=== PATIENT | female | born 1945 ===

== ENCOUNTER 2021-06-28 15:17 | Inpatient (IN) | payer MEDICARE, OTHER ==
[~2021-06-28] VITALS: Ht 165.1 cm; Wt 63.5 kg
[2021-06-28] MEDS ORDERED: LACT10SO3 PO (15:47)
[2021-06-28] MEDS ORDERED: DEXT15DR6 EACHEYE (15:47)
[2021-06-28] MEDS ORDERED: ALEN70TA3 PO (15:47)
[2021-06-28] MEDS ORDERED: MELA3TAB41 PO (15:47)
[2021-06-28] MEDS ORDERED: CARB1TAB21 PO (15:47)
[2021-06-28] MEDS ORDERED: PRAV40TA3 PO (15:47)
[2021-06-28] MEDS ORDERED: RIVA10TA PO (15:47)
[2021-06-28] MEDS ORDERED: POLY17PO4 PO (15:47)
[2021-06-28] MEDS ORDERED: OMEP40CA21 PO (15:47)
[2021-06-28] MEDS ORDERED: LORA-259 PO (15:47)
[2021-06-28] MEDS ORDERED: CLOZ100T32 PO (15:47)
[2021-06-28] MEDS ORDERED: METF-440 PO (15:47)
[2021-06-28] MEDS ORDERED: VALP250C3 PO (15:47)
[2021-06-28] MEDS ORDERED: CARB-35 PO (15:47)
[2021-06-28] MEDS ORDERED: MEMA10TA PO (15:47)
[2021-06-28] MEDS ORDERED: QUET50TA PO (16:49)
[2021-06-28] MEDS ORDERED: NUT.237L31 PO (16:49)
--- NOTE | 2021-06-28 18:00 | NUR ---
Reviewed pt medication w/ pt's daughter.
--- NOTE | 2021-06-28 18:05 | NUR ---
Patient is resting comfortably in bed with eyes closed. NAD noted.
--- NOTE | 2021-06-28 18:22 | NUR ---
Pt awake quite and cooperative. No C/O pain.
--- NOTE | 2021-06-28 18:39 | NUR ---
PT is medically cleared by Dr Marcos. Pt to be admitted to MHU.
--- NOTE | 2021-06-28 19:29 | NUR ---
pt a/o report was given for mental health transfer.
[2021-06-28] MEDS ORDERED: OLANZAPINE 10 MG VIAL IM ONE ×2 (22:00)
[2021-06-28] MEDS ORDERED: LORAZEPAM 2 MG/1 ML VIAL IM ONE ×2 (22:00)
--- NOTE | 2021-06-28 22:01 | NUR ---
pt transported via [facility]ney with all belongings to mental health unit.
[2021-06-29] MEDS ORDERED: ACETAMINOPHEN 325 MG TABLET PO PRN (02:00)
[2021-06-29] MEDS ORDERED: MAGNESIUM HYDROXIDE 30 ML LIQUID UDC PO PRN (02:00)
[2021-06-29] MEDS ORDERED: CLONAZEPAM 0.5 MG TABLET PO PRN (02:00)
[2021-06-29] MEDS ORDERED: TEMAZEPAM 7.5 MG CAPSULE PO PRN (02:00)
[2021-06-29] MEDS ORDERED: MAG HYDROX/AL HYDROX/SIMETH 30 ML LIQUID UDC PO PRN (02:00)
[2021-06-29] MEDS ORDERED: BLOOD SUGAR DIAGNOSTIC 1 EACH STRIP VI ONE (02:00)
--- NOTE | 2021-06-29 04:53 | NUR ---
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 Patient has been medication non-compliant as well as refusing to eat. On arrival patient's appearance was observed to be poor, disheveled and unkempt. Patient is apparently farsi speaking only, daughter involved and helped with interpretation. Daughter stated that patient was on clozaril for a specific amount of time and the plan was to taper the medication and gradually change it to seroquel, daughter seems to think the failure to begin the new planned medication regimen is the reason for her mother's decline. Patient was unable to complete admission interview process. Plan for care in place as well as observation Q15 minutes for safety. IM times one ordered by psychiatrist for agitation and belligerent behavior however the IM was not administered, patient became less agitated. Last observed awake in room asleep.
[2021-06-29 07:30] VITALS: BP 176/73
--- NOTE | 2021-06-29 10:40 | NUR ---
SASHA Initial Discharge Note Pt's resident is [address] [place] [address]. Pt currently resides at [address], [address] . Pt's daughter confirmed that she and her brother Buddy want the pt back to the facility upon discharge. SASHA will contact [facility] to confirm pt's return upon discharge. SASHA will continue to work with pt, family and MD to ensure a safe and proper discharge plan.
--- NOTE | 2021-06-29 10:41 | NUR ---
SW Family Contact SW contacted pt's daughter, Josseline who stated her borther Buddy is the pt's DPOA. Maria E stated she and her brother 100% want their mother to return to [facility] upon discharge. Josseline reported that they will both be involved in their mother's treatment and discharge plan throughout her stay at [facility]. Josseline is worried about her mother as she expressed her mother's current behavior and mental status was not like this before. SASHA expressed that she will be in contact with her and her brother Buddy again with further discharge and additional information.
--- NOTE | 2021-06-29 12:14 | NUR ---
Firearms Report: Clinical Rehabilitation Coordinator completed and submitted a [employer] firearms report for 5150 grave disability certifications. A copy of report has been placed in patient chart.
--- NOTE | 2021-06-29 15:54 | NUR ---
GPS: PT AGITATED, ANXIOUS AND SCREAMING INSIDE THE ROOM, STATING " THERE IS A MAN NAME YVON WITH A GUN BEHIND THE DOOR!" PT VERY PARANOID AND DELUSIONAL. RE-ORIENTED PT AND REDIRECTED BUT UNSUCCESSFUL, PT STILL SCREAMING. DR QUESADA, SUPERVISORY GEOGRAPHER ORDERED ZYPREXA 5MG IM ONE TIME, AND BENADRYL 25MG IM ONE TIME FOR AGITATION AND ANXIETY.
[2021-06-29 16:00] VITALS: BP 155/86
[2021-06-29] MEDS ORDERED: OLANZAPINE 10 MG VIAL IM ONE (16:00)
[2021-06-29] MEDS ORDERED: diphenhydrAMINE 50 MG/1 ML VIAL IM ONE (16:00)
--- NOTE | 2021-06-29 16:26 | NUR ---
GPS: ADMINISTERED ZYPREXA IM TO RIGHT UPPER OUTER QUADRANT OF BUTTOCKS AND BENADRYL IM ON LEFT UPPER OUTER QUADRANT OF BUTTOCKS. PT TOLERATED WELL THE IM INJ. PT WITH TREMORS NOTED ON BOTH HANDS AND SOUNDS NERVOUS, SAYING ABOUT A PERSON, A PRINCIPAL CLOUD ARCHITECT AND ABOUT YVON. PT IN PARANOID STATE OF MIND. WILL MONITOR PT.
[2021-06-29 20:00] VITALS: BP 158/70
[2021-06-29] MEDS: QUETIAPINE FUMARATE 25 MG TABLET PO SCH (21:00)
[2021-06-29] MEDS: DIVALPROEX 250 MG TABLET.DR PO SCH (21:00)
--- NOTE | 2021-06-30 05:31 | NUR ---
Pt awake on her bed at this time, no s/s of distress, no c/o pain. Observed to be uncooperative with care, non compliant with meds. refused HS meds despite trying to offer them multiple times and in different forms. Pt yelled, kept sending nurse out of the room, thinks that she's being poisoned everytime something is offered to her or care is being provided. Daughter Amina called, spoke to this nurse who explained how the patient is doing per her inquiry. Advised to call before coming to visit her mother today, as she stated she was planning to do. Safety precautions in place, q15 min checks done.
[2021-06-30 07:30] VITALS: BP 124/90
[2021-06-30] MEDS: QUETIAPINE FUMARATE 25 MG TABLET PO SCH ×2 (09:00→21:00)
[2021-06-30] MEDS ORDERED: QUETIAPINE FUMARATE 25 MG TABLET PO SCH (09:00)
[2021-06-30] MEDS: DIVALPROEX 250 MG TABLET.DR PO SCH ×2 (09:00→21:00)
--- NOTE | 2021-06-30 10:21 | NUR ---
GPS: PT RECEIVED ON BED, PARANOID AND SUSPICIOUS. REFUSED ALL MEDS, STATING " YOU ARE GIVING ME POISON, I DON'T TAKE THAT!" INFORMED PT THAT I SPOKE WITH HER DAUGHTER AND SHE IS COMING AROUND LUNCH TIME. PT HAVING DELUSIONS, "I KNOW POLICE ARE OUT THERE AND HAVE RIFLE TO HIT ME". PT RE-ORIENTED TO REALITY.
[2021-06-30] MEDS ORDERED: POLYVINYL ALCOHOL OPHT DROPS 15 ML BOTTLE EACHEYE PRN (15:30)
--- NOTE | 2021-06-30 15:58 | NUR ---
GPS: HELPED RETORT FIREMAN CHANGED PT DIAPER AND PT WAS COMBATIVE AND TRYING TO KICK RETORT FIREMAN. STEVE, DAUGHTER OF PT CAME FOR A VISIT AND REQUESTED TO HELP WITH PT TAKING THE MEDICATION. ALL MEANS WAS DONE AND PT REFUSED TAKING MEDICATIONS, EVEN THE GLUCERNA AND BANANA THAT DAUGHTER BROUGHT. PT WAS PARANOID AND SUSPICIOUS. DAUGHTER REQUESTING DR HUERTA/ SANGITA TO CALL HER AT OR ANGLE (DPOA) AT ABOUT REISE PETITION FILED. PER DAUGHTER STEVE, PETITION WAS FILED SO SOON AND WITHOUT DPOA APPROVAL OR AWARENESS. PT REFUSED MEALS, NOTED DRINKING WATER. PER ORNADEEM, PT TAKES FOSAMAX EVERY SATURDAY. AND MAKE LACTULOSE ON PRN PT DOES NOT HAVE GOOD INTAKE.
[2021-06-30] MEDS: MIRALAX 17 GM POWD.PACK PO SCH (17:00)
[2021-06-30] MEDS ORDERED: CARBIDOPA/LEVODOPA 25-100MG TAB.RAPDIS PO SCH (17:00)
[2021-06-30] MEDS: GLUCERNA SHAKE 237 ML CAN PO SCH (17:00)
[2021-06-30] MEDS: CARBIDOPA/LEVODOPA 25-100MG TABLET PO SCH (17:00)
[2021-06-30] MEDS ORDERED: METFORMIN HCL 500 MG TABLET PO SCH (18:00)
[2021-06-30] MEDS ORDERED: RIVAROXABAN 10 MG TABLET PO SCH (18:00)
[2021-06-30] MEDS: ATORVASTATIN 40 MG TABLET PO SCH (21:00)
[2021-06-30] MEDS ORDERED: LACTULOSE 20 G/30 ML LIQUID UDC PO PRN (21:00)
[2021-06-30] MEDS ORDERED: CARBIDOPA/LEVODOPA 25-100MG TABLET PO SCH (21:00)
[2021-06-30] MEDS: CARBIDOPA/LEVODOPA CR 25-100MG TABLET.SA PO SCH (21:00)
--- NOTE | 2021-06-30 21:00 | NUR ---
RECEIVED PATIENT IN HER ROOM IN BED. SHE IS NOTED CONFUSED, DISORGANIZED SPEECH, TALKING IN HER LANGUAGE THEN SWITCHING TO [place]ENLAND[place], BACK AND FORT, FLIGHT OF IDEAS. APPEARS TO BE RESPONDING TO INTERNAL STIMULI, STARING AT THE WALL, TALKING TO UNSEEN PEOPLE, SUSPICIOUS, DELUSIONAL AND PARANOID. SHE IS HARD TO REDIRECT, REQUIRED MULTIPLE REDIRECTIONS. SHE REFUSED V/S, REFUSED SNACKS BUT WAS ABLE TO DRINK APPROX 300CC WATER. SHE CONTINUE REFUSING PO MEDS. SAFETY AND FALL PRECAUTION IN PLACE. WILL CONTINUE TO MONITOR.
--- NOTE | 2021-06-30 22:10 | NUR ---
PATIENT REFUSED QHS PO MEDICATION, MULTIPLE REDIRECTION GIVEN. SHE CONTINUE GROSSLY PSYCHOTIC. SHE IS NOTED COMBATIVE AND RESISTANT TO CARE WHEN PROVIDING ADLs AND SKIN CARE. SHE REQUIRED 2 OR 3 STAFF FOR ADLs. WILL CONTINUE TO MONITOR.
[2021-06-30] MEDS ORDERED: DEXTROSE 50% 50 ML DISP.SYRIN IV PRN (22:45)
[2021-06-30] MEDS ORDERED: INSULIN REGULAR, HUMAN 300 UNIT/3 ML VIAL SQ PRN (22:45)
[2021-07-01] MEDS ORDERED: OLANZAPINE 10 MG VIAL IM ONE (02:45)
[2021-07-01] MEDS ORDERED: diphenhydrAMINE 50 MG/1 ML VIAL IM ONE (02:45)
--- NOTE | 2021-07-01 03:05 | NUR ---
CHEMICAL RESTRAIN: PATIENT WAS NOTED YELLING AND SCREAMING. SHE WAS NOTED TALKING TO HERSELF IN HER LANGUAGE, TALKING TO UNSEEN PEOPLE, STARING AT THE WALL, RESPONDING TO INTERNAL STIMULI, GROSSLY PSYCHOTIC. SHE WAS UNABLE TO CALM DOWN. JOSE ALANIS NP WAS NOTIFIED VIA PHONE CALL AND NEW ORDER OBTAINED TO ADMINISTER ZYPREXA 5MG IM AND BENADRYL 50MG IM ONE TIME ORDER. ORDER NOTED AND CARRIED OUT.
--- NOTE | 2021-07-01 04:15 | NUR ---
PATIENT CONTINUE TALKING TO HERSELF; HOWEVER, SHE IS CALM AND RESTING IN HER BED. CHEMICAL RESTRAIN WAS EFFECTIVE. WILL CONTINUE TO MONITOR.
[2021-07-01] MEDS: PANTOPRAZOLE SODIUM 40 MG TABLET.DR PO SCH ×2 (06:43→06:54)
[2021-07-01] MEDS: BLOOD SUGAR DIAGNOSTIC 1 EACH STRIP VI SCH ×4 (06:54→21:00)
[2021-07-01 07:30] VITALS: BP 165/112
[2021-07-01] MEDS: GLUCERNA SHAKE 237 ML CAN PO SCH ×3 (08:00→17:00)
[2021-07-01] MEDS: DIVALPROEX 250 MG TABLET.DR PO SCH ×2 (08:56→21:00)
[2021-07-01] MEDS: MIRALAX 17 GM POWD.PACK PO SCH ×2 (08:56→17:00)
[2021-07-01] MEDS: CARBIDOPA/LEVODOPA 25-100MG TABLET PO SCH ×3 (08:56→17:00)
[2021-07-01] MEDS: QUETIAPINE FUMARATE 25 MG TABLET PO SCH ×2 (08:56→21:00)
[2021-07-01] MEDS ORDERED: HALOPERIDOL LACTATE 5 MG/1 ML VIAL IM PRN (10:30)
[2021-07-01] MEDS ORDERED: LORAZEPAM 2 MG/1 ML VIAL IM ONE (10:30)
--- NOTE | 2021-07-01 10:30 | NUR ---
Gps/Psychological Aide- Restless, yelling , calling out, screaming out loud, difficulty redirecting patient, disruptive , refusing fluids thinks its poison, ref. routine meds, suspicious of everything offered to her. Dr Hammer was called by Hollow Core Door Frame Assembler Brigette, orders received.
--- NOTE | 2021-07-01 11:35 | NUR ---
Gps/Side Seam Envelope Machine Operator- Remains in bed, no distress, calmer.Monitored safety
[2021-07-01 16:00] VITALS: BP 170/90
[2021-07-01 16:51] LABS: HEMATOCRIT 47.4 % (31.2-41.9); MEAN CORPUSCULAR HEMOGLOBIN 30.2 uug (24.7-32.8); MEAN CORPUSCULAR VOLUME 92.5 fL (75.5-95.3); PLATELET COUNT (AUTO) 172 K/uL (179-408)
[2021-07-01 17:00] LABS: CREATININE 0.8 mg/dL (0.6-1.3); MAGNESIUM 2.3 mg/dL (1.8-2.4); PHOSPHOROUS 3.5 mg/dL (2.5-4.9); POTASSIUM 3.8 mmol/L (3.5-5.1)
[2021-07-01 17:15] LABS: BILIRUBIN,DIRECT 0.1 mg/dL (0.0-0.2); BILIRUBIN,TOTAL 0.7 mg/dL (0.2-1.0); TOTAL PROTEIN, SERUM 7.8 g/dL (6.4-8.2)
--- NOTE | 2021-07-01 17:41 | NUR ---
Gps/Supervisor Home Energy Consultant- Had been quiet this pm, sleeping .Lab. was able to draw blood works , with some assist. from the staff/
--- NOTE | 2021-07-01 18:43 | NUR ---
Gps/Augustine Manjarrez (Daughter) who claimed , she's a Nurse Practitioner , was to know the progress of the patient, reviewed labs as requested, claimed she was here yesterday to vist patient, noted lips were dry, and looks dehydrated. Informed patient's earlier behavior, screaming , yelling out loud, difficulty redirecting patient, extreme paranoia, thinks staff are putting poison in her foods. Per Daughter, she was able to talked to Dr Booth (VIDEO CAMERA OPERATOR) prior Offered fluids, tried to open infront of her , still refused to take anything. vaseline applied to her lips r/t to dryness.
[2021-07-01] MEDS ORDERED: ENOXAPARIN SODIUM 40 MG/0.4 ML DISP.SYRIN SQ ONE (21:00)
[2021-07-01] MEDS: ATORVASTATIN 40 MG TABLET PO SCH (21:00)
[2021-07-01] MEDS: CARBIDOPA/LEVODOPA CR 25-100MG TABLET.SA PO SCH (21:00)
--- NOTE | 2021-07-01 21:39 | NUR ---
RECEIVED PATIENT IN HER ROOM IN BED ASLEEP BUT EASILY AROUSABLE. SHE IS NOTED CALM UPON APPROACHED. SHE IS HARD TO REDIRECT AND REQUIRES MULTIPLE REDIRECTIONS AND REASSURANCE. SHE CONTINUE SUSPICIOUS OF FOOD AND DRINKS THAT ARE FROM THE HOSPITAL. SHE WAS ABLE TO DRINK ONE BOTTLE OF GLUCERNA 250ML AND CHEESE THAT HER DAUGHTER BROUGHT FORM HOME. PT IS ENCOURAGE TO DRINK AND EAT MORE. PATIENT CONTINUE REFUSING PO MEDS. SHE IS GUARDED AND DELUSIONAL. MOOD IS LOW, AFFECT IS IRRITABLE. SHE REFUSED V/S, SHE IS UNCOMPLYING WITH ADLs. SHE IS REASSURED FOR HER SAFETY. SAFETY AND FALL PRECAUTION IN PLACE. WILL CONTINUE TO MONITOR.
--- NOTE | 2021-07-01 22:05 | NUR ---
PATIENT REFUSED ALL HER QHS MEDICATIONS. SHE WAS INFORMED OF THE IMPORTANCE TO COMPLY WITH HER MEDICATION REGIMENT YET INEFFECTIVE. WILL CONTINUE TO MONITOR.
[2021-07-02] MEDS ORDERED: LORAZEPAM 2 MG/1 ML VIAL IM ONE (04:45)
[2021-07-02] MEDS ORDERED: HALOPERIDOL LACTATE 5 MG/1 ML VIAL IM ONE (04:45)
--- NOTE | 2021-07-02 05:30 | NUR ---
PATIENT WAS NOTED YELLING AND SCREAMING, ANXIOUS AND AGITATED, SHE WAS SCREAMING, "DON'T KILL ME, DON'T KILL". SHE ATTEMPTED TO THROUGH AT STAFF A BOTTLE OF GLUCERNA. SHE WAS UNABLE TO TO BE REDIRECTED SHE WAS UNABLE TO CFS. DR GARCIA WAS NOTIFIED AND NEW ORDER OBTAINED TO ADMINISTER HALDOL 2MG IM AND ATIVAN 1MG IM ONE TIME ORDER. ORDER WAS NOTED AND CARRIED OUT. WILL CONTINUE TO MONITOR.
[2021-07-02] MEDS: PANTOPRAZOLE SODIUM 40 MG TABLET.DR PO SCH (06:23)
--- NOTE | 2021-07-02 06:30 | NUR ---
PATIENT NOTED CALM AT THIS TIME. CHEMICAL RESTRAIN WAS EFFECTIVE. WILL CONTINUE TO MONITOR.
[2021-07-02] MEDS: BLOOD SUGAR DIAGNOSTIC 1 EACH STRIP VI SCH ×4 (07:30→21:59)
[2021-07-02] MEDS: GLUCERNA SHAKE 237 ML CAN PO SCH ×3 (08:00→16:28)
[2021-07-02] MEDS: QUETIAPINE FUMARATE 25 MG TABLET PO SCH ×2 (08:36→21:00)
[2021-07-02] MEDS: DIVALPROEX 250 MG TABLET.DR PO SCH ×2 (08:36→21:00)
[2021-07-02] MEDS: MIRALAX 17 GM POWD.PACK PO SCH ×2 (08:36→16:29)
[2021-07-02] MEDS: CARBIDOPA/LEVODOPA 25-100MG TABLET PO SCH ×3 (08:37→16:29)
--- NOTE | 2021-07-02 08:40 | NUR ---
Patient refused her blood to be drawn by phlebotomy.
--- NOTE | 2021-07-02 15:51 | NUR ---
Patient is received sleeping in her room. A/O X 1 to person. Pt. affect is confused, combative, anxious, paranoid " This food is poisonous". Refuses medications, accuchecks, vital signs. Incontinent. Total care. reassurance given. Fall and safety precautions implemented.
[2021-07-02] MEDS ORDERED: IV NS 1000 ML 1,000 ML IV ONE (19:45)
--- NOTE | 2021-07-02 20:45 | NUR ---
Received patient in bed. SHE IS NOTED AWAKE, A/O X 1. UPON APPROACHED, PATIENT IS HYPERVERBAL, WITH PARANOID DELUSION OF PERSECUTION. PATIENT STATED, "INFECTION, NO INFECTION, DON'T GIVE ANY THING IS POISON AND INFECTION". PATIENT REFUSED TO BE REPOSITION, SHE GETS AGITATED AND COMBATIVE WHEN ATTEMPTING TO DO ADLS. SHE REFUSED V/S. REFUSING PO MEDS. NS IV FLUID WAS ORDERED BY DR ANDRADE; HOWEVER, PATIENT IS TOO PSYCHOTIC TO LET THIS TREATING PLANT OPERATOR INSERT AN IV. AND PER NURSE RIGGING UP MAN, NO AVAILABLE SITTER AT THIS TIME TO SIT WITH PATIENT WHILE IV FLUID IS RUNNING. PER NURSE RIGGING UP MAN, SHE WILL TRY TO GET A SITTER FOR THE MORNING. DR ANDRADE WAS NOTIFIED. WILL CONTINUE TO MONITOR AND IF THERE IS AN OPPORTUNITY TO START IV FLUID WILL DO IT.
[2021-07-02] MEDS: CARBIDOPA/LEVODOPA CR 25-100MG TABLET.SA PO SCH (21:00)
[2021-07-02] MEDS ORDERED: ENOXAPARIN SODIUM 40 MG/0.4 ML DISP.SYRIN SQ SCH (21:00)
[2021-07-02] MEDS: ATORVASTATIN 40 MG TABLET PO SCH (21:00)
--- NOTE | 2021-07-02 22:00 | NUR ---
patient accucheck BG qhs is 161. No regular insulin sliding scale was given d/t patient is not eating and she is drinking poorly and per Dr. Boykin, to not given any glucose lowering medication until patient starts eating. She continue refusing to eat, refusing IV fluids and PO medications. she is non compliant with care and ADLs. She was able to take few sips of glucerna. Will continue to monitor.
[2021-07-03] MEDS: PANTOPRAZOLE SODIUM 40 MG TABLET.DR PO SCH (07:00)
[2021-07-03] MEDS: BLOOD SUGAR DIAGNOSTIC 1 EACH STRIP VI SCH ×3 (07:34→16:30)
--- NOTE | 2021-07-03 07:36 | NUR ---
Patient slept for approx 3 hrs through the night, she had 2 wet diapers. His accucheck is 160 this morning. patient continue psychotic, delusional thinking of persecutions. unable to comply with care. she continue stating that people are out to kill her and the all the food and water is poison and infectious. She is unable to be redirected. Per nurse mold construction supervisor, no available sitter at this time; however, patient is too psychotic to start IV. will continue to monitor.
[2021-07-03] MEDS: GLUCERNA SHAKE 237 ML CAN PO SCH ×3 (08:00→16:58)
[2021-07-03 08:29] LABS: HEMATOCRIT 48.9 % (31.2-41.9); MEAN CORPUSCULAR HEMOGLOBIN 30.1 uug (24.7-32.8); MEAN CORPUSCULAR VOLUME 92.2 fL (75.5-95.3); PLATELET COUNT (AUTO) 164 K/uL (179-408)
[2021-07-03] MEDS: QUETIAPINE FUMARATE 25 MG TABLET PO SCH (08:35)
[2021-07-03] MEDS: DIVALPROEX 250 MG TABLET.DR PO SCH (08:35)
[2021-07-03] MEDS: MIRALAX 17 GM POWD.PACK PO SCH ×2 (08:35→16:58)
[2021-07-03] MEDS: CARBIDOPA/LEVODOPA 25-100MG TABLET PO SCH ×3 (08:36→16:59)
[2021-07-03 08:37] LABS: CREATININE 0.9 mg/dL (0.6-1.3); POTASSIUM 3.7 mmol/L (3.5-5.1)
[2021-07-03 08:40] VITALS: BP 155/92
--- NOTE | 2021-07-03 11:53 | NUR ---
Received orders to discharge this patient, talked to Ellie ASHTON from Medical Surgical floor, and she told me they don't have beds available at this moment, waiting for their call regards to this matter.
--- NOTE | 2021-07-03 12:13 | NUR ---
Patient had a fever of 101.3. Dr. Shala Boykin is aware of it. Tylenol 650 mg was refused by the patient.
--- NOTE | 2021-07-03 15:57 | NUR ---
Received patient sleeping in her room. A/O X 1 to person. Pt. affect is confused, disoriented, combative to care. Refuses medications. Total care. Patient is lethargic, not eating well, just waiting for a bed to be discharged to the medical floor, as diagnose of failure to thrive. Reassurance given. Fall and safety precautions implemented.
[2021-07-03] MEDS ORDERED: OLANZAPINE 10 MG VIAL IM ONE (19:30)
[2021-07-03] MEDS ORDERED: diphenhydrAMINE 50 MG/1 ML VIAL IM ONE (19:30)
--- NOTE | 2021-07-03 19:40 | NUR ---
Zyprexa IM given to pt. Pt in no acute distress. Discharge papers given . elevating grader operator with pt and going to room 304. Report given to Tiesha ASHTON. Naomi IM cancelled by Pratima Barnard NP. Pt stable.
[2021-07-03 20:04] LABS: NEUTROPHILS % (MANUAL) 0 % (42-75)
[2021-07-03] MEDS ORDERED: CARB1TAB21 PO ×2 (22:58)
[2021-07-03] MEDS ORDERED: LACTULOSE PO (22:58)
[2021-07-03] MEDS ORDERED: POLY17PO4 PO (22:58)
[2021-07-03] MEDS ORDERED: PANT40TA2 PO (22:58)
[2021-07-03] MEDS ORDERED: MAG30ORA14 PO (22:58)
[2021-07-03] MEDS ORDERED: ALEN70TA80 PO (22:58)
[2021-07-03] MEDS ORDERED: ATOR40TA PO (22:58)
[2021-07-03] MEDS ORDERED: INSU100V28 (22:58)
[2021-07-03] MEDS ORDERED: NUT.237L36 PO (22:58)
[2021-07-03] MEDS ORDERED: BLOO-668 IN (22:58)
[2021-07-03] MEDS ORDERED: DEXT50DI8 IV (22:58)
[2021-07-03] MEDS ORDERED: QUET25TA PO ×2 (22:58)
[2021-07-03] MEDS ORDERED: ENOX40DI SQ (22:58)
[2021-07-03] MEDS ORDERED: [UNRECOGNIZED DRUG - OTHER] PO (22:58)
[2021-07-03] MEDS ORDERED: CLON0.5T PO (22:58)
[2021-07-03] MEDS ORDERED: DIVA250T4 PO (22:58)
[2021-07-03] MEDS ORDERED: DEXT15DR6 EACHEYE (22:58)
[2021-07-03] MEDS ORDERED: ACET-2154 PO (22:58)
--- NOTE | 2021-07-04 15:59 | NUR ---
SW Transfer: Pt was discharged to [facility] [address] floor[address]. De Luna and Pratima FEED MIXER are aware of the discharge. Upon discharge, pt's DPOA Buddy Holt ([phone]) would like to be contacted prior to discharge planning to [facility]
[2021-07-05] MEDS ORDERED: ALENDRONATE SODIUM 70 MG TABLET PO SCH (06:00)
== END 2021-07-03 19:50 | disposition short-term general hospital (02) | DRG 885 ==
LOC: ER 15:23 → GPS 22:55
PROVIDERS: ADMIT Psychiatry & Neurology Psychiatry; ATTEND Nurse Practitioner Acute Care
DX: F31.64 Bipolar disorder, current episode mixed, severe, with psychotic features (principal); G20 Parkinson's disease; F02.80 Dementia in other diseases classified elsewhere, unspecified severity, without behavioral disturbance, psychotic disturbance, mood disturbance, and anxiety; E86.0 Dehydration; E78.5 Hyperlipidemia, unspecified; E11.9 Type 2 diabetes mellitus without complications; R50.9 Fever, unspecified; Z86.711 Personal history of pulmonary embolism; Z91.14 Patient's other noncompliance with medication regimen; M81.0 Age-related osteoporosis without current pathological fracture; Z20.822 Contact with and (suspected) exposure to COVID-19
CPT/HCPCS: 36415; 70030-TC; 83735; 84100; 85025; 93005; A4663; J1200; J1630; J1650; J1815; J2060; J2358; J3490; J7030; J8499

== ENCOUNTER 2021-07-03 20:23 | Inpatient (IN) | payer MEDICARE, OTHER ==
[~2021-07-03] VITALS: Ht 165.1 cm; Wt 63.5 kg
[2021-07-03 20:00] VITALS: BP 145/88
[~2021-07-03 20:23] MED LIST: ALEN70TA3 PO; CARB-35 PO; CARB1TAB21 PO; DEXT15DR6 EACHEYE; LACT10SO3 PO; METF-440 PO; NUT.237L31 PO; OMEP40CA21 PO; POLY17PO4 PO; PRAV40TA3 PO; RIVA10TA PO
--- NOTE | 2021-07-03 20:30 | NUR ---
RECEIVED PATIENT VIA TOAN-CHAIR FROM [facility] AND ADMITTED TO MED SURG. PATIENT IS ALERT TO SELF ONLY, VERY CONFUSED AND DISORIENTED. PATIENT APPEARS VERY PARANOID. VS WNL. DENIES PAIN. NO RESP. DISTRESS OR SOB NOTED. PATIENT PLACED IN BED. SKIN INTACT. BED ALARM ON. ALL NEEDS ATTENDED. WILL CONTINUE TO MONITOR AND ASSESS.
[2021-07-03] MEDS ORDERED: ACET-2154 PO (22:58)
[2021-07-03] MEDS ORDERED: LACTULOSE PO (22:58)
[2021-07-03] MEDS ORDERED: DIVA250T4 PO (22:58)
[2021-07-03] MEDS ORDERED: DEXT50DI8 IV (22:58)
[2021-07-03] MEDS ORDERED: BLOO-668 IN (22:58)
[2021-07-03] MEDS ORDERED: CARB1TAB21 PO ×2 (22:58)
[2021-07-03] MEDS ORDERED: INSU100V28 (22:58)
[2021-07-03] MEDS ORDERED: ATOR40TA PO (22:58)
[2021-07-03] MEDS ORDERED: ALEN70TA80 PO (22:58)
[2021-07-03] MEDS ORDERED: ENOX40DI SQ (22:58)
[2021-07-03] MEDS ORDERED: NUT.237L36 PO (22:58)
[2021-07-03] MEDS ORDERED: DEXT15DR6 EACHEYE (22:58)
[2021-07-03] MEDS ORDERED: [UNRECOGNIZED DRUG - OTHER] PO (22:58)
[2021-07-03] MEDS ORDERED: QUET25TA PO ×2 (22:58)
[2021-07-03] MEDS ORDERED: CLON0.5T PO (22:58)
[2021-07-03] MEDS ORDERED: POLY17PO4 PO (22:58)
[2021-07-03] MEDS ORDERED: PANT40TA2 PO (22:58)
[2021-07-03] MEDS ORDERED: MAG30ORA14 PO (22:58)
[2021-07-04] MEDS ORDERED: ACETAMINOPHEN 325 MG TABLET PO PRN (01:45)
[2021-07-04] MEDS ORDERED: ONDANSETRON 4 MG/2 ML VIAL IV PRN (01:45)
[2021-07-04] MEDS ORDERED: MAGNESIUM HYDROXIDE 30 ML LIQUID UDC PO PRN (01:45)
[2021-07-04] MEDS: LORAZEPAM 2 MG/1 ML VIAL IV PRN ×2 (04:54→15:05)
--- NOTE | 2021-07-04 04:55 | NUR ---
PATIENT VERY AGITATED, UNABLE TO CHANGE DIAPER OR GIVE AM CARE. PATIENT GIVEN ATIVAN 0.5MG IV PER RN. TEMPERATURE 99.8. PATIENT GIVEN TYLENOL 650MG RC FOR TEMP. WILL CONTINUE TO MONITOR AND ASSESS.
[2021-07-04] MEDS: ACETAMINOPHEN 650 MG SUPP.RECT RC PRN (05:10)
--- NOTE | 2021-07-04 05:22 | NUR ---
PATIENT ASLEEP IN BED. EASILY AROUSABLE. MOUTH CARE PROVIDED. NO RESP. DISTRESS NOTED. SITTER AT BEDSIDE ORDERED. BED ALARM ON. ALL NEEDS ATTENDED.
[2021-07-04] MEDS ORDERED: POTASSIUM CHLORIDE 20 MEQ in IV D5 1/2 NS 1000 ML 1,000 ML IV PRN (07:00)
[2021-07-04] MEDS: PANTOPRAZOLE SODIUM 40 MG TABLET.DR PO SCH (07:00)
[2021-07-04 08:00] VITALS: BP 134/70
[2021-07-04] MEDS: METFORMIN HCL 500 MG TABLET PO SCH ×2 (08:00→17:05)
[2021-07-04 08:16] LABS: MEAN CORPUSCULAR HEMOGLOBIN 29.8 uug (24.7-32.8); MEAN CORPUSCULAR VOLUME 91.8 fL (75.5-95.3); PLATELET COUNT (AUTO) 127 K/uL (179-408)
[2021-07-04 08:37] LABS: THYROID STIMULATING HORMONE 1.916 mIU/mL (0.358-3.740)
[2021-07-04] MEDS: MIRALAX 17 GM POWD.PACK PO SCH ×2 (08:52→16:27)
[2021-07-04] MEDS: DIVALPROEX 250 MG TABLET.DR PO SCH ×2 (08:52→21:00)
[2021-07-04] MEDS: METOPROLOL TARTRATE 25 MG TABLET PO SCH ×2 (08:52→21:00)
[2021-07-04] MEDS: CARBIDOPA/LEVODOPA 25-100MG TABLET PO SCH ×3 (08:53→16:28)
[2021-07-04] MEDS: GLUCERNA SHAKE 237 ML CAN PO SCH ×3 (08:54→16:27)
--- NOTE | 2021-07-04 08:54 | NUR ---
RECEIVED PATIENT IN BED AWAKE ALERT TO SELF WITH CONFUSION AND DISORIENTATION REFUSED ALL HER MEDICATIONS STATED THAT THEY ARE TOXIC BUT DRANK HER GLUCERNA BUT REFUSED HER BREAKFAST STATED THAT ALL THE FOOD IS TOXIC AND WILL NOT EAT THEM.HAD A HARD TIME PUTTING HER IV FLUID ORDERED STATED THAT ITS TOXIC AND DOES NOT WANT THE IVF BUT MANAGED TO CONNECT SHE HAS A KIRLIX PROTECTING WILL OBSERVE TO SEE IF SHE IS REMOVING THE IV AND WILL MOST LIKELY RESTRAIN HER BUT FOR NOW WILL HAVE THE SITTER KEEP CLOSE OBSERVATION
[2021-07-04 08:55] LABS: BILIRUBIN,TOTAL 0.4 mg/dL (0.2-1.0); MAGNESIUM 2.6 mg/dL (1.8-2.4); PHOSPHOROUS 4.4 mg/dL (2.5-4.9)
[2021-07-04] MEDS ORDERED: QUETIAPINE FUMARATE 25 MG TABLET PO SCH (09:00)
[2021-07-04] MEDS ORDERED: CARBIDOPA/LEVODOPA 25-100MG TAB.RAPDIS PO SCH (09:00)
[2021-07-04] MEDS ORDERED: GLUCERNA 1.2 1000ML LIQUID PO SCH (09:00)
--- NOTE | 2021-07-04 09:30 | NUR ---
PATIENT IS IN BED AWAKE CONFUSED AND DISORIENTED VERY DELUSIONAL AND PARANOID REFUSED ALL DUE MEDICATIONS THINKS THEY ARE TOXIC UNABLE TO REDIRECT.
--- NOTE | 2021-07-04 11:45 | NUR ---
CASTRO WALKER HERE TO SEE PATIENT AND STATED THAT SHE ALREADY SPOKE WITH PATIENTS DAUGHTER ORAH AND NOTIFIED HER OF THE PLAN OF CARE STATED THAT THE PATIENTS DAUGHTER WILL BE HERE AND WILL TRY TO GIVE THE PATIENT HER DEPAKOTE AND OR SERROQUEL MAY BE SHE WILL TAKE THEM
--- NOTE | 2021-07-04 13:30 | NUR ---
PATIENTS DAUGHTER HERE AND TRIES TO GIVE PATIENT HER PSYCH MEDICATIONS BUT SHE REFUSED TO TAKE THEM AT THIS TIME.
--- NOTE | 2021-07-04 15:07 | NUR ---
WAS MEDICATED WITH ATIVAN PATIENT CONTINUES TO BE AGGRESSIVE REFUSING CARE AND MEDICATIONS WILL REASSESS
--- NOTE | 2021-07-04 16:04 | NUR ---
SW Transfer: Pt was discharged to [facility] [address] floor[address]. De Luna and Pratima CALL CENTER DISPATCHER are aware of the discharge. Upon discharge, pt's DPOA Buddy Holt ([phone]) would like to be contacted prior to discharge planning to [facility]
--- NOTE | 2021-07-04 17:00 | NUR ---
UNABLE TO GET URINE SPECIMEN PATIENT IS INCONTINENT DAUGHTER HERE AND WE BOTH TRIED TO CONVINCE PATIENT TO DO A STRAIGHT CATH BUT PATIENT REFUSED AT THIS NEDA.
[2021-07-04] MEDS ORDERED: RIVAROXABAN 10 MG TABLET PO SCH (18:00)
--- NOTE | 2021-07-04 18:43 | NUR ---
PER DR RIZO NOTE PATIENT IS RESSED SEE ORDERS
--- NOTE | 2021-07-04 19:27 | NUR ---
IV SITE INFILTERATED UNABLE TO REINSERT MD AWARE WILL TRY MID LINE PATIENT IS UNCOOPERATIVE AT THIS TIME DAUGHTER IS AT THE BEDSIDE AND AWARE THAT SHE NEEDS A MIDLINE SUP AWARE.
[2021-07-04] MEDS: ATORVASTATIN 40 MG TABLET PO SCH (21:00)
[2021-07-04] MEDS: QUETIAPINE FUMARATE 25 MG TABLET PO SCH ×2 (21:00)
[2021-07-04] MEDS: CARBIDOPA/LEVODOPA CR 25-100MG TABLET.SA PO SCH (21:00)
[2021-07-04] MEDS ORDERED: CARBIDOPA/LEVODOPA 25-100MG TABLET PO SCH (21:00)
[2021-07-04] MEDS: OLANZAPINE 10 MG VIAL IM PRN (21:31)
--- NOTE | 2021-07-04 22:12 | NUR ---
Patient noncompliant , paranoid and delusional believe that she her medications and food are poisoning her.Risk and benefits explained x3 however patient continue to refused her medication. Patient on reise.Zyprexa IM given. Midline inserted on left midline 18 g by midline nurse. No active bleeding. IVF infusing well.1: 1 sitter at bedside.Will continue to monitor.
[2021-07-04] MEDS: IV D5 1/2 NS 1000 ML 1,000 ML IV PRN (22:30)
[2021-07-04 23:40] VITALS: BP 153/83
[2021-07-05] MEDS: LORAZEPAM 2 MG/1 ML VIAL IV PRN (03:59)
[2021-07-05 04:25] VITALS: BP 138/67
[2021-07-05] MEDS ORDERED: ALENDRONATE SODIUM 70 MG TABLET PO SCH (06:00)
[2021-07-05] MEDS: PANTOPRAZOLE SODIUM 40 MG TABLET.DR PO SCH (06:20)
--- NOTE | 2021-07-05 07:00 | NUR ---
received in bed sleeping sitter at bed side
[2021-07-05 07:31] LABS: *BILIRUBIN,URIN NEGATIVE (NEGATIVE); *BLOOD, URINE 1+ (NEGATIVE); *CLARITY,URINE CLEAR (CLEAR); *COLOR,URINE YELLOW (YELLOW); *KETONES,URINE TRACE (NEGATIVE); *UROBILINOGEN,URINE 0.2 E.U./dl (NORMAL); LEUKOCYTE ESTERASE ,URINE TRACE (NEGATIVE); NITRITE, URINE POSITIVE (NEGATIVE); UGLUCOSE 2+ (NEGATIVE)
[2021-07-05 07:50] LABS: HEMATOCRIT 46.4 % (31.2-41.9); MEAN CORPUSCULAR HEMOGLOBIN 29.6 uug (24.7-32.8); MEAN CORPUSCULAR VOLUME 92.8 fL (75.5-95.3); PLATELET COUNT (AUTO) 84 K/uL (179-408)
[2021-07-05] MEDS: METOPROLOL TARTRATE 25 MG TABLET PO SCH ×3 (07:53→20:53)
[2021-07-05] MEDS: CARBIDOPA/LEVODOPA 25-100MG TABLET PO SCH ×5 (07:53→18:01)
[2021-07-05] MEDS: MIRALAX 17 GM POWD.PACK PO SCH ×2 (07:53→16:39)
[2021-07-05] MEDS: QUETIAPINE FUMARATE 25 MG TABLET PO SCH ×5 (07:53→20:54)
[2021-07-05] MEDS: DIVALPROEX 250 MG TABLET.DR PO SCH ×3 (07:53→20:52)
[2021-07-05] MEDS: METFORMIN HCL 500 MG TABLET PO SCH ×3 (07:54→18:00)
[2021-07-05 08:09] LABS: CREATININE 0.9 mg/dL (0.6-1.3); POTASSIUM 4.4 mmol/L (3.5-5.1)
[2021-07-05] MEDS: GLUCERNA SHAKE 237 ML CAN PO SCH ×4 (08:21→17:00)
--- NOTE | 2021-07-05 09:00 | NUR ---
pt is very angery refusing to eat and she is asking water when the water is given pt said no is poison i do not want to drink
[2021-07-05 11:24] VITALS: BP 151/71
[2021-07-05] MEDS: ENOXAPARIN SODIUM 60 MG/0.6 ML DISP.SYRIN SQ SCH ×2 (12:13→20:40)
[2021-07-05] MEDS: IV D5 1/2 NS 1000 ML 1,000 ML IV PRN (12:36)
[2021-07-05] MEDS: CEFTRIAXONE 1 G in IV DEXTROSE 5% 50 ML IV SCH (12:51)
[2021-07-05 15:02] VITALS: BP 120/72
[2021-07-05] MEDS: ACETAMINOPHEN 650 MG SUPP.RECT RC PRN (15:05)
[2021-07-05 15:32] LABS: BACTERIA,URINE MANY /HPF (NONE SEEN); RBC,URINE 0-3 /HPF (0-3); SQUAMOUS EPITHELIAL CELL,UR FEW /HPF (NONE SEEN); URIC ACID CRYSTALS,URINE MANY /HPF (NONE SEEN)
[2021-07-05 20:00] VITALS: BP 152/77
[2021-07-05] MEDS: CARBIDOPA/LEVODOPA CR 25-100MG TABLET.SA PO SCH ×2 (20:36→20:54)
[2021-07-05] MEDS: ATORVASTATIN 40 MG TABLET PO SCH ×2 (20:37→20:53)
[2021-07-05] MEDS: OLANZAPINE 10 MG VIAL IM PRN (20:57)
[2021-07-06] MEDS: IV D5 1/2 NS 1000 ML 1,000 ML IV PRN ×2 (02:03→15:28)
--- NOTE | 2021-07-06 06:23 | NUR ---
Patient refused all po meds during the shift and stated its toxic. Zyprexa IM given as ordered PRN. No distress identified. Denies pain or discomfort. All due meds given, all needs attended. Kept call light within reach. Safety measures maintained. Will endorse for continuity of care.
[2021-07-06 06:38] LABS: HEMATOCRIT 40.7 % (31.2-41.9); MEAN CORPUSCULAR HEMOGLOBIN 30.1 uug (24.7-32.8); MEAN CORPUSCULAR VOLUME 92.4 fL (75.5-95.3); PLATELET COUNT (AUTO) 74 K/uL (179-408)
[2021-07-06] MEDS: PANTOPRAZOLE SODIUM 40 MG TABLET.DR PO SCH (07:00)
[2021-07-06 07:19] LABS: CREATININE 0.7 mg/dL (0.6-1.3); MAGNESIUM 2.2 mg/dL (1.8-2.4); PHOSPHOROUS 3.9 mg/dL (2.5-4.9); POTASSIUM 4.7 mmol/L (3.5-5.1)
[2021-07-06] MEDS: METFORMIN HCL 500 MG TABLET PO SCH ×2 (07:56→17:38)
[2021-07-06] MEDS: METOPROLOL TARTRATE 25 MG TABLET PO SCH ×3 (08:28→21:00)
[2021-07-06] MEDS: ENOXAPARIN SODIUM 60 MG/0.6 ML DISP.SYRIN SQ SCH ×2 (08:28→20:40)
[2021-07-06] MEDS: DIVALPROEX 250 MG TABLET.DR PO SCH ×3 (08:28→21:00)
[2021-07-06] MEDS: CARBIDOPA/LEVODOPA 25-100MG TABLET PO SCH ×3 (08:28→16:58)
[2021-07-06] MEDS: QUETIAPINE FUMARATE 25 MG TABLET PO SCH ×5 (08:28→21:00)
[2021-07-06] MEDS: GLUCERNA SHAKE 237 ML CAN PO SCH ×3 (08:28→16:58)
[2021-07-06] MEDS: MIRALAX 17 GM POWD.PACK PO SCH ×2 (08:28→16:05)
[2021-07-06 08:41] VITALS: BP 155/80
[2021-07-06] MEDS: CEFTRIAXONE 1 G in IV DEXTROSE 5% 50 ML IV SCH (12:35)
[2021-07-06 16:00] VITALS: BP 148/61
[2021-07-06 20:00] VITALS: BP 142/64
--- NOTE | 2021-07-06 20:30 | NUR ---
PATIENT AWAKE IN BED. SITTER AT BEDSIDE. PATIENT IS ALERT TO SELF, VERY DISORIENTED AND PARANOID. EASILY AGITATED WHEN APPROACHED. DAUGHTER AT BEDSIDE. BED ALARM ON. ALL NEEDS ATTENDED. WILL CONTINUE TO MONITOR AND ASSESS.
[2021-07-06] MEDS: ATORVASTATIN 40 MG TABLET PO SCH ×2 (20:39→21:00)
[2021-07-06] MEDS: CARBIDOPA/LEVODOPA CR 25-100MG TABLET.SA PO SCH ×2 (20:39→21:00)
--- NOTE | 2021-07-06 21:00 | NUR ---
PATIENT REFUSED PO MEDICATIONS.
[2021-07-06] MEDS: OLANZAPINE 10 MG VIAL IM PRN (21:49)
--- NOTE | 2021-07-06 21:50 | NUR ---
PATIENT GIVEN ZYPREXA 2.5MG IM ORDERED PER RN. VS WNL. SITTER AT BEDISDE. IVF INFUSING WELL TO LEFT UA.
[2021-07-07] MEDS: LORAZEPAM 2 MG/1 ML VIAL IV PRN (00:11)
[2021-07-07] MEDS: IV D5 1/2 NS 1000 ML 1,000 ML IV PRN ×2 (03:50→15:19)
[2021-07-07 05:31] VITALS: BP 149/71
[2021-07-07] MEDS: PANTOPRAZOLE SODIUM 40 MG TABLET.DR PO SCH (06:17)
[2021-07-07 07:05] LABS: HEMATOCRIT 37.8 % (31.2-41.9); MEAN CORPUSCULAR HEMOGLOBIN 30.1 uug (24.7-32.8); MEAN CORPUSCULAR VOLUME 92.4 fL (75.5-95.3); PLATELET COUNT (AUTO) 68 K/uL (179-408)
[2021-07-07 07:41] LABS: BILIRUBIN,TOTAL 0.3 mg/dL (0.2-1.0); CREATININE 0.7 mg/dL (0.6-1.3); POTASSIUM 4.2 mmol/L (3.5-5.1); TOTAL PROTEIN, SERUM 5.7 g/dL (6.4-8.2)
[2021-07-07] MEDS: METFORMIN HCL 500 MG TABLET PO SCH ×2 (08:00→18:00)
[2021-07-07] MEDS: ENOXAPARIN SODIUM 60 MG/0.6 ML DISP.SYRIN SQ SCH ×2 (09:00→21:09)
[2021-07-07] MEDS: DIVALPROEX 250 MG TABLET.DR PO SCH ×2 (09:00→21:00)
[2021-07-07] MEDS: QUETIAPINE FUMARATE 25 MG TABLET PO SCH ×3 (09:00→21:00)
[2021-07-07] MEDS: GLUCERNA SHAKE 237 ML CAN PO SCH ×3 (09:00→17:00)
[2021-07-07] MEDS: MIRALAX 17 GM POWD.PACK PO SCH ×2 (09:00→17:00)
[2021-07-07] MEDS: CARBIDOPA/LEVODOPA 25-100MG TABLET PO SCH ×3 (09:00→17:00)
[2021-07-07] MEDS: METOPROLOL TARTRATE 25 MG TABLET PO SCH ×2 (09:00→21:00)
[2021-07-07] MEDS: OLANZAPINE 10 MG VIAL IM PRN ×2 (10:31→21:05)
[2021-07-07] MEDS: CEFTRIAXONE 1 G in IV DEXTROSE 5% 50 ML IV SCH (13:32)
[2021-07-07] MEDS: CARBIDOPA/LEVODOPA CR 25-100MG TABLET.SA PO SCH (21:00)
[2021-07-07] MEDS: ATORVASTATIN 40 MG TABLET PO SCH (21:00)
[2021-07-08] MEDS: LORAZEPAM 2 MG/1 ML VIAL IV PRN ×2 (04:27→14:11)
[2021-07-08] MEDS: IV D5 1/2 NS 1000 ML 1,000 ML IV PRN ×2 (04:49→19:34)
[2021-07-08 06:17] VITALS: BP 137/61
[2021-07-08] MEDS: PANTOPRAZOLE SODIUM 40 MG TABLET.DR PO SCH (06:23)
[2021-07-08] MEDS: METFORMIN HCL 500 MG TABLET PO SCH ×2 (08:00→17:40)
[2021-07-08] MEDS: DIVALPROEX 250 MG TABLET.DR PO SCH ×2 (08:01→21:37)
[2021-07-08] MEDS: MIRALAX 17 GM POWD.PACK PO SCH ×2 (08:02→16:25)
[2021-07-08] MEDS: CARBIDOPA/LEVODOPA 25-100MG TABLET PO SCH ×3 (08:02→16:25)
[2021-07-08] MEDS: QUETIAPINE FUMARATE 25 MG TABLET PO SCH ×3 (08:02→21:37)
[2021-07-08] MEDS: ENOXAPARIN SODIUM 60 MG/0.6 ML DISP.SYRIN SQ SCH ×2 (08:02→22:17)
[2021-07-08] MEDS: METOPROLOL TARTRATE 25 MG TABLET PO SCH ×2 (08:02→21:36)
[2021-07-08] MEDS: GLUCERNA SHAKE 237 ML CAN PO SCH ×3 (08:02→16:25)
[2021-07-08] MEDS: OLANZAPINE 10 MG VIAL IM PRN (09:20)
[2021-07-08] MEDS: CEFTRIAXONE 1 G in IV DEXTROSE 5% 50 ML IV SCH (14:02)
[2021-07-08 20:00] VITALS: BP 133/76
[2021-07-08] MEDS: ATORVASTATIN 40 MG TABLET PO SCH (21:37)
[2021-07-08] MEDS: CARBIDOPA/LEVODOPA CR 25-100MG TABLET.SA PO SCH (21:38)
[2021-07-09] MEDS: LORAZEPAM 2 MG/1 ML VIAL IV PRN ×3 (04:35→20:26)
[2021-07-09] MEDS: PANTOPRAZOLE SODIUM 40 MG TABLET.DR PO SCH (06:03)
[2021-07-09 07:44] VITALS: BP_SYST 118; BP_SYST 63; BP_DIAS 63
[2021-07-09] MEDS: METFORMIN HCL 500 MG TABLET PO SCH ×2 (08:00→17:01)
--- NOTE | 2021-07-09 08:00 | NUR ---
PT paranoid stating that "we are killing her with poison" explained to patient that were giving her medications. pt refused to take meds. Pt screaming Your killing me. Sitter 1:1 at bedside. Pt on day hold. expires on 07/14/20. original copy of hold on file at [facility]. Addendum: 07/09/21 at 1820 by GOLDEN LOGAN RN Pt on lb
[2021-07-09] MEDS: OLANZAPINE 10 MG VIAL IM PRN ×2 (08:30→20:26)
[2021-07-09] MEDS: GLUCERNA SHAKE 237 ML CAN PO SCH ×3 (08:35→17:00)
[2021-07-09] MEDS: METOPROLOL TARTRATE 25 MG TABLET PO SCH ×2 (08:35→21:00)
[2021-07-09] MEDS: DIVALPROEX 250 MG TABLET.DR PO SCH ×2 (08:35→21:00)
[2021-07-09] MEDS: MIRALAX 17 GM POWD.PACK PO SCH ×2 (08:36→17:00)
[2021-07-09] MEDS: QUETIAPINE FUMARATE 25 MG TABLET PO SCH ×2 (08:36→20:26)
[2021-07-09] MEDS: CARBIDOPA/LEVODOPA 25-100MG TABLET PO SCH ×3 (08:36→17:00)
[2021-07-09] MEDS: ENOXAPARIN SODIUM 60 MG/0.6 ML DISP.SYRIN SQ SCH ×2 (08:37→21:00)
[2021-07-09 11:45] VITALS: BP 147/90
--- NOTE | 2021-07-09 12:00 | NUR ---
Pt very agitated hitting sitter. Ativan given for agitation as ordered prn. resp 18.
[2021-07-09] MEDS: CEFTRIAXONE 1 G in IV DEXTROSE 5% 50 ML IV SCH (15:24)
[2021-07-09 15:48] VITALS: BP 132/63
--- NOTE | 2021-07-09 19:30 | NUR ---
Received patient report from AM shift. Patient is sleeping soundly. 1:1 sitter by bedside. On Room air saturating 99% 144/72, pulse 81 RR 19, temp 98.7. IV on the Left upper arm running D5 at 75ml, patent and intact. Bed in the lowest position, bed alarm on. No signs or symptoms of pain or distress, will continue to monitor.
[2021-07-09 20:06] VITALS: BP 141/72
[2021-07-09] MEDS: CARBIDOPA/LEVODOPA CR 25-100MG TABLET.SA PO SCH (21:00)
[2021-07-09] MEDS: ATORVASTATIN 40 MG TABLET PO SCH (21:00)
--- NOTE | 2021-07-09 21:45 | NUR ---
Report Given to oncoming nurse.
--- NOTE | 2021-07-09 21:45 | NUR ---
Received report, no signs of acute distress. pt's family by bedside. BP 125/ 59 HR 83 R 19. Sitter 1:1 by bedside.
[2021-07-09 21:57] VITALS: BP 125/59
[2021-07-09 22:35] VITALS: BP 143/55
--- NOTE | 2021-07-09 23:05 | NUR ---
per pt's daughter, pt is having chest pain. assessment done, pt denies any chest pain or discomfort. BP 143/55, HR 92, O2 98% on RA. MD notified, STAT TROPONIN ORDERED.
--- NOTE | 2021-07-10 00:12 | NUR ---
Pt sleeping, no signs of acute distress. Troponin resulted, 0.017. WNL. BARRETT notified.
[2021-07-10] MEDS: IV D5 1/2 NS 1000 ML 1,000 ML IV PRN (01:50)
[2021-07-10 04:09] VITALS: BP 149/85
--- NOTE | 2021-07-10 06:34 | NUR ---
slept throughout the night, on room air saturating at 98%. KATHIE midline intact and running D5 1/2 NS at 75ml. Non-compliant with am medication and care. Educated pt importance on medication but continues to refuse. No signs of acute distress. Safety measures maintained. 1:1 sitter by bedside. Will endorse to am shift.
[2021-07-10] MEDS: PANTOPRAZOLE SODIUM 40 MG TABLET.DR PO SCH (07:00)
[2021-07-10] MEDS: METFORMIN HCL 500 MG TABLET PO SCH ×2 (08:00→16:38)
[2021-07-10] MEDS: MIRALAX 17 GM POWD.PACK PO SCH ×2 (09:00→16:38)
[2021-07-10] MEDS: METOPROLOL TARTRATE 25 MG TABLET PO SCH ×2 (09:00→20:46)
[2021-07-10] MEDS: CARBIDOPA/LEVODOPA 25-100MG TABLET PO SCH ×3 (09:00→16:38)
[2021-07-10] MEDS: DIVALPROEX 250 MG TABLET.DR PO SCH ×2 (09:00→20:45)
[2021-07-10] MEDS: GLUCERNA SHAKE 237 ML CAN PO SCH ×3 (09:00→16:37)
[2021-07-10] MEDS: QUETIAPINE FUMARATE 25 MG TABLET PO SCH ×2 (09:00→20:46)
--- NOTE | 2021-07-10 10:00 | NUR ---
1:1 sitter at bedside. pt refused all po meds. Pt on lb gave zyprexa as ordered. Call light is within reach.
[2021-07-10] MEDS: ENOXAPARIN SODIUM 60 MG/0.6 ML DISP.SYRIN SQ SCH ×2 (10:01→21:20)
[2021-07-10] MEDS: OLANZAPINE 10 MG VIAL IM PRN (10:02)
[2021-07-10] MEDS: LORAZEPAM 2 MG/1 ML VIAL IV PRN (13:17)
--- NOTE | 2021-07-10 14:00 | NUR ---
Placed small cup to collect urine specimen in between her legs. Awaiting to get specimen. PT easily agitated and was kicking staff and unable to get urine via in and out cath. Ativan given to calm pt.
--- NOTE | 2021-07-10 16:00 | NUR ---
attempted to get urine again via in and out cath and unable to get specimen. will await to catch urine with the small bottle as pt is incontinent.
--- NOTE | 2021-07-10 18:51 | NUR ---
Unable to get urine will endorse to next shift. Pt is in no acute distress. Call light is within reach.
[2021-07-10 19:06] VITALS: BP 144/83
[2021-07-10] MEDS: ATORVASTATIN 40 MG TABLET PO SCH (20:45)
[2021-07-10] MEDS: CARBIDOPA/LEVODOPA CR 25-100MG TABLET.SA PO SCH (20:45)
--- NOTE | 2021-07-10 23:00 | NUR ---
URINE SENT DOWN TO LAB.
[2021-07-11] MEDS: LORAZEPAM 2 MG/1 ML VIAL IV PRN (00:14)
[2021-07-11 05:27] LABS: *BILIRUBIN,URIN NEGATIVE (NEGATIVE); *BLOOD, URINE NEGATIVE (NEGATIVE); *CLARITY,URINE CLEAR (CLEAR); *COLOR,URINE YELLOW (YELLOW); *KETONES,URINE NEGATIVE (NEGATIVE); *UROBILINOGEN,URINE 0.2 E.U./dl (NORMAL); LEUKOCYTE ESTERASE ,URINE 1+ (NEGATIVE); NITRITE, URINE NEGATIVE (NEGATIVE); PH,URINE 6.5 (5.0-8.0); UGLUCOSE NEGATIVE (NEGATIVE)
[2021-07-11] MEDS: PANTOPRAZOLE SODIUM 40 MG TABLET.DR PO SCH (06:11)
[2021-07-11 06:33] LABS: BACTERIA,URINE NONE SEEN /HPF (NONE SEEN); RBC,URINE 0-3 /HPF (0-3); SQUAMOUS EPITHELIAL CELL,UR FEW /HPF (NONE SEEN)
[2021-07-11 06:34] LABS: URINE AMORPHOUS URATE MODERATE /HPF
[2021-07-11 07:50] VITALS: BP 131/52
[2021-07-11] MEDS: METFORMIN HCL 500 MG TABLET PO SCH ×2 (08:00→17:07)
[2021-07-11] MEDS: QUETIAPINE FUMARATE 25 MG TABLET PO SCH (09:00)
[2021-07-11] MEDS: CARBIDOPA/LEVODOPA 25-100MG TABLET PO SCH ×3 (09:00→16:59)
[2021-07-11] MEDS: MIRALAX 17 GM POWD.PACK PO SCH ×2 (09:00→16:59)
[2021-07-11] MEDS: GLUCERNA SHAKE 237 ML CAN PO SCH ×3 (09:00→16:59)
[2021-07-11] MEDS: DIVALPROEX 250 MG TABLET.DR PO SCH (09:00)
[2021-07-11] MEDS: METOPROLOL TARTRATE 25 MG TABLET PO SCH (09:00)
--- NOTE | 2021-07-11 09:00 | NUR ---
awake alert but confused, sitter at bedside, refused to take po meds, took only a cartoon of milk for breakfast, safety measures maintained
[2021-07-11] MEDS: ENOXAPARIN SODIUM 60 MG/0.6 ML DISP.SYRIN SQ SCH (09:11)
[2021-07-11] MEDS: OLANZAPINE 10 MG VIAL IM PRN (09:23)
[2021-07-11] MEDS ORDERED: NITROFURANTOIN/NITROFURAN MAC 100 MG CAPSULE PO SCH (10:00)
--- NOTE | 2021-07-11 10:30 | NUR ---
daughter here, update given.
[2021-07-11] MEDS ORDERED: IV D5 1/2 NS 1000 ML 1,000 ML IV PRN (11:15)
[2021-07-11] MEDS ORDERED: IOHEXOL 350 100 ML INFUS..BTL ONE (11:16)
[2021-07-11] MEDS ORDERED: IV NORMAL SALINE 250 ML IV ONE (11:16)
[2021-07-11] MEDS ORDERED: SWABABLE VALVE TRANSFER SET EA MC ONE (11:16)
--- NOTE | 2021-07-11 11:30 | NUR ---
for cta chest- son Buddy (dpoa) with daughter refused to give consent, wanted to speak to and Dr Pritchard informed
[2021-07-11 11:56] VITALS: BP 130/53
[2021-07-11] MEDS ORDERED: CEFTRIAXONE 1 G in IV DEXTROSE 5% 50 ML IV SCH (15:00)
[2021-07-11 16:06] VITALS: BP 150/90
--- NOTE | 2021-07-11 18:00 | NUR ---
temp 100.1- informed Dr Pritchard- to be d/cd to MHU with iv abx
--- NOTE | 2021-07-11 19:50 | NUR ---
pt to be d/cd to MHU- report given to Breanne ASHTON- endorsed to night nurse RN to transfer pt to MHU
--- NOTE | 2021-07-11 20:15 | NUR ---
Discharged to MHU. Patient taken down stairs via wheelchair. Alert and orient x1, confused. Vitals signs stable, all belonging taken downstairs and given to receiving nurse.
[2021-07-12] MEDS ORDERED: ENOXAPARIN SODIUM 40 MG/0.4 ML DISP.SYRIN SQ SCH (09:00)
== END 2021-07-11 21:05 | DRG 689 ==
LOC: MEDSURG3 20:23
PROVIDERS: ATTEND Internal Medicine
DX: N39.0 Urinary tract infection, site not specified (principal); E43 Unspecified severe protein-calorie malnutrition; G92.8 Other toxic encephalopathy; N17.0 Acute kidney failure with tubular necrosis; F31.64 Bipolar disorder, current episode mixed, severe, with psychotic features; D68.59 Other primary thrombophilia; R62.7 Adult failure to thrive; E03.9 Hypothyroidism, unspecified; E78.5 Hyperlipidemia, unspecified; B96.20 Unspecified Escherichia coli [E. coli] as the cause of diseases classified elsewhere; E11.65 Type 2 diabetes mellitus with hyperglycemia; G20 Parkinson's disease; I10 Essential (primary) hypertension; I25.10 Atherosclerotic heart disease of native coronary artery without angina pectoris; Z86.711 Personal history of pulmonary embolism; Z95.1 Presence of aortocoronary bypass graft; M81.0 Age-related osteoporosis without current pathological fracture; F03.90 Unspecified dementia, unspecified severity, without behavioral disturbance, psychotic disturbance, mood disturbance, and anxiety; F29 Unspecified psychosis not due to a substance or known physiological condition; Z79.84 Long term (current) use of oral hypoglycemic drugs; Z20.822 Contact with and (suspected) exposure to COVID-19; Z68.23 Body mass index [BMI] 23.0-23.9, adult
CPT/HCPCS: 36415; 70030-TC; 71045; 83735; 84100; 84443; 85025; 87077; 87086; 93005; 97161; C1758; G0378; J0696; J1650; J2060; J2358; J3480; J3490; J7050; J7060; Q9967

== ENCOUNTER 2021-07-11 21:11 | Inpatient (IN) | payer MEDICARE, OTHER ==
[~2021-07-11] VITALS: Ht 165.1 cm; Wt 63.5 kg
[2021-07-11 20:00] VITALS: BP 163/59
[~2021-07-11 21:11] MED LIST changes: +ACET-2154 PO; +ATOR40TA PO; +BLOO-668 IN; +CLON0.5T PO; +DEXT50DI8 IV; +DIVA250T4 PO; +ENOX40DI SQ; +INSU100V28; +LACTULOSE PO; +MAG30ORA14 PO; +NUT.237L36 PO; -OMEP40CA21 PO; +PANT40TA2 PO; +QUET25TA PO; +[UNRECOGNIZED DRUG - OTHER] PO
[2021-07-11] MEDS ORDERED: DEXTROSE 50% 50 ML DISP.SYRIN IV PRN (21:45)
[2021-07-11] MEDS ORDERED: IV D5 1/2 NS 1000 ML 1,000 ML IV PRN (21:45)
[2021-07-11] MEDS ORDERED: TEMAZEPAM 7.5 MG CAPSULE PO PRN (22:00)
[2021-07-11] MEDS ORDERED: CLONAZEPAM 0.5 MG TABLET PO PRN (22:00)
[2021-07-11] MEDS ORDERED: MAG HYDROX/AL HYDROX/SIMETH 30 ML LIQUID UDC PO PRN (22:00)
[2021-07-11] MEDS ORDERED: BLOOD SUGAR DIAGNOSTIC 1 EACH STRIP VI ONE (22:00)
[2021-07-11] MEDS: INSULIN REGULAR, HUMAN 300 UNIT/3 ML VIAL SQ SCH (23:41)
[2021-07-11] MEDS: BLOOD SUGAR DIAGNOSTIC 1 EACH STRIP VI SCH (23:41)
[2021-07-11] MEDS ORDERED: OLANZAPINE 10 MG VIAL IM ONE (23:45)
[2021-07-12 07:47] VITALS: BP 146/77
[2021-07-12] MEDS: CARBIDOPA/LEVODOPA 25-100MG TABLET PO SCH ×3 (08:13→17:00)
[2021-07-12] MEDS: ENOXAPARIN SODIUM 40 MG/0.4 ML DISP.SYRIN SQ SCH (08:19)
[2021-07-12] MEDS: ACETAMINOPHEN 325 MG TABLET PO PRN (08:25)
[2021-07-12] MEDS: GLUCERNA SHAKE 237 ML CAN PO SCH ×3 (08:36→17:00)
--- NOTE | 2021-07-12 08:48 | NUR ---
GPS: RECEIVED PT TODAY ON BED, SLEEPING. BREAKFAST CAME AND PT HAD A GOOD MEAL. PT COMPLIANT WITH MEDICATIONS AND STATED " I LIKE TAKING SINEMET BECAUSE IT HELPS ME WITH MY PARKINSONS". PT REQUESTED FOR TYLENOL 650MG, GIVEN AND TOLERATED WELL. PT PLEASANT, KIND, SAYING "THANK YOU AND GOD BLESS YOU". GIVEN ENOXAPARIN INJECTION ADMINISTERED ON LEFT LOWER ABDOMEN AND TOLERATED WELL BY PT. PT WAS SEEN BY PHYSICAL THERAPIST AND PT WAS ABLE TO SIT ON THE EDGE OF THE BED, AND PT REQUESTED THAT SHE LIKES TO REST FIRST TODAY AND WILL CONTINUE PT NEXT TIME. DR ERAZO, ENVIRONMENTAL ENGINEER SAW PT AND WAS HAPPY TO SEE PT PROGRESS.
[2021-07-12 08:57] LABS: BILIRUBIN,TOTAL 0.6 mg/dL (0.2-1.0); CREATININE 0.7 mg/dL (0.6-1.3); POTASSIUM 3.5 mmol/L (3.5-5.1); TOTAL PROTEIN, SERUM 6.8 g/dL (6.4-8.2)
[2021-07-12] MEDS: IV D5 1/2 NS 1000 ML 1,000 ML IV SCH ×3 (09:00→15:57)
[2021-07-12] MEDS ORDERED: OLANZAPINE 10 MG VIAL IM PRN (09:00)
[2021-07-12] MEDS ORDERED: CARBIDOPA/LEVODOPA 25-100MG TAB.RAPDIS PO SCH (09:00)
[2021-07-12] MEDS ORDERED: GLUCERNA 1.2 1000ML LIQUID PO SCH (09:00)
[2021-07-12] MEDS: DIVALPROEX 500 MG TABLET.DR PO SCH ×2 (09:49→20:36)
[2021-07-12] MEDS: QUETIAPINE FUMARATE 25 MG TABLET PO SCH ×2 (09:49→20:36)
--- NOTE | 2021-07-12 09:54 | NUR ---
SW Attestation: Sarah Mora GEOTECHNICAL DEPARTMENT MANAGER, ACSW attest to the accuracy of the psychosocial done on June 29, 2021. Per 5150 hold, the patient was admitted to [facility] on June 28, 2021 on a 5150 hold for gravely disabled. Upon face to face evaluation, pt appeared disorganized and very confused. According to pt's MD, pt was transferred from [facility] to [facility] 3rd Floor on July 03, 2021 for UTI. According MD, pt was transferred back to [facility] on July 11, 2021 for Psychosis and continued care for UTI. Pt residence according to the face sheet is located at [address] [place] [address] [place] [address]. Pt's son, Buddy Holt (DPMARTY) ([phone]) and daughter, Josseline ([phone]) reported to this health underwriter that pt's last residence was at [address], [address] ([phone]). Buddy and Josseline reported that pt will return to [facility] upon discharge, however Buddy ([facility]) wants to be notified of pt's current status prior to contacting the facility to regarding discharge. Upon face to face re-evaluation, pt continues to appear disorganized and very confused. Pt is unable to have a proper conversation due to her confusion. Pt is unable to focus and appears to be mentally preoccupied. SW will contact [facility] ([phone]) after consent from [facility] to see if pt is welcome back or SW will notify [facility] and discuss finding an alternative placement for pt. Family and MD will be notified. This health underwriter will contact Scotty throughout pt's stay at [facility] to update pt's status and discuss further discharge planning with family and MD.
[2021-07-12] MEDS: BLOOD SUGAR DIAGNOSTIC 1 EACH STRIP VI SCH ×3 (11:30→20:37)
[2021-07-12] MEDS: INSULIN REGULAR, HUMAN 300 UNIT/3 ML VIAL SQ SCH ×3 (11:30→20:37)
--- NOTE | 2021-07-12 11:30 | NUR ---
GPS: PT REFUSED IV ADMINISTRATION. GETTING AGITATED AND SHE DOES NOT WANT THE BAG MACHINE HELPER AND OTHER NURSE. EXPLAINED RISK AND BENEFIT, STILL PT REFUSED.
--- NOTE | 2021-07-12 12:20 | NUR ---
GPS: DAUGHTER CAME AND EXPLAINED THAT PT REFUSING THE ACCUCHECK, THE IV ADMINISTRATION AND OTHER ORAL MEDS. DAUGHTER WILL TRY TO CONVINCE PT TO TAKE IT AND ACCEPT THE IV ADMINISTRATION AND IV ATB.
--- NOTE | 2021-07-12 13:25 | NUR ---
GPS: DAUGHTER GAVE UP WITH CONVINCING PT TO GET THE IV ADMINISTRATION. PT REFUSED AND AGITATED EVEN WITH PRESENCE OF DAUGHTER. PT REFUSED KLONOPIN ORAL TABLET. PT SCREAMING AND SAYING "I DON'T WANT IV, I DON'T NEED IT. DON'T GIVE ME ANYTHING." DAUGHTER UNABLE TO HELP WITH ENCOURAGING THE PT. CALLED DR CASTRO NP REPORTED PT NON-STOP SCREAMING AND AGITATED. ERIN ERAZO, ORDERED ATIVAN 0.5MG IM ONE TIME DOSE.
[2021-07-12] MEDS ORDERED: LORAZEPAM 2 MG/1 ML VIAL IM ONE (13:30)
--- NOTE | 2021-07-12 14:55 | NUR ---
GPS: PT STILL ANXIOUS, AGITATED AND SCREAMING, STARTING TO GET COMBATIVE. ADMINISTERED ATIVAN 0.5MG IM ONE TIME DOSE ADMINISTERED ON RIGHT DELTOID. PT TOLERATED WELL. WILL MONITOR PT.
[2021-07-12] MEDS: CEFTRIAXONE 1 G in IV DEXTROSE 5% 50 ML IV SCH (15:41)
--- NOTE | 2021-07-12 16:11 | NUR ---
GPS: FLUSHED THE LEFT ARM SITE FOR PATENCY, PT STARTED ON IV D5 1/2 NS 70ML/HR ON 1000ML AND IV ATB ROCEPHINE INFUSING AT 100ML/HR ON 50ML. PT TOLERATING WELL THE IV ADMINISTRATION. WILL MONITOR ON REACTION.
[2021-07-12 16:56] VITALS: BP 132/68
--- NOTE | 2021-07-12 17:25 | NUR ---
GPS: REFUSED THE SINEMET ORAL MEDS. EXPLAINED RISK AND BENEFITS. PT STATED " I DON'T TAKE HALF TABLET OF MEDICATION IT DOES NOT WORK ON ME". PT WITH IV PATENT AND DENIES ANY PAIN OR DISCOMFORT.
--- NOTE | 2021-07-12 18:59 | NUR ---
GPS: PT ON BED ASLEEP. RELAX AND CALM. PT WITH IV PATENTLY FLOWING. NO INFILTRATION NOTED, NO REDNESS, NO SWELLING ON IV SITE. DENIES ANY PAIN OR DISCOMFORT. WILL MONITOR.
[2021-07-12] MEDS: CARBIDOPA/LEVODOPA CR 25-100MG TABLET.SA PO SCH (20:36)
--- NOTE | 2021-07-12 20:37 | NUR ---
patient refused carbidopa po HS dose,
[2021-07-12] MEDS ORDERED: CARBIDOPA/LEVODOPA 25-100MG TABLET PO SCH (21:00)
[2021-07-13] MEDS: IV D5 1/2 NS 1000 ML 1,000 ML IV SCH ×2 (05:03→19:52)
--- NOTE | 2021-07-13 05:56 | NUR ---
GPS: Remain uncooperative with care. continue on ivf. assisted with adl's. slept 9 hrs through the night. continue plan of care.
[2021-07-13] MEDS: BLOOD SUGAR DIAGNOSTIC 1 EACH STRIP VI SCH ×4 (06:27→21:00)
[2021-07-13] MEDS: INSULIN REGULAR, HUMAN 300 UNIT/3 ML VIAL SQ SCH ×4 (07:30→21:00)
[2021-07-13 07:31] LABS: CREATININE 0.6 mg/dL (0.6-1.3); POTASSIUM 4.3 mmol/L (3.5-5.1)
[2021-07-13 07:41] VITALS: BP 104/53
[2021-07-13 07:41] LABS: HEMATOCRIT 35.8 % (31.2-41.9); MEAN CORPUSCULAR HEMOGLOBIN 30.4 uug (24.7-32.8); MEAN CORPUSCULAR VOLUME 90.9 fL (75.5-95.3); PLATELET COUNT (AUTO) 227 K/uL (179-408)
[2021-07-13] MEDS: ENOXAPARIN SODIUM 40 MG/0.4 ML DISP.SYRIN SQ SCH (09:00)
[2021-07-13] MEDS: GLUCERNA SHAKE 237 ML CAN PO SCH ×3 (09:00→17:00)
[2021-07-13] MEDS: CARBIDOPA/LEVODOPA 25-100MG TABLET PO SCH ×3 (09:00→17:00)
[2021-07-13] MEDS: QUETIAPINE FUMARATE 25 MG TABLET PO SCH ×2 (09:01→20:16)
[2021-07-13] MEDS: DIVALPROEX 500 MG TABLET.DR PO SCH ×2 (09:01→20:16)
--- NOTE | 2021-07-13 10:08 | NUR ---
GPS: PT ON BED AWAKE AND DENIES ANY PAIN OR DISCOMFORT. DAUGHTER CAME WITH PERMISSION FROM [facility] TO GET IN FOR HELP WITH PT. PT TOOK SEROQUEL AND DEPAKOTE EXCEPT SINEMET. DAUGHTER REQUESTED LOVENOX TO BE D/C AND CHANGE TO ORAL MEDS. DR ENAMORADO DC LOVENOX AND START WITH ELIQUIS. WILL MONITOR PT.
[2021-07-13] MEDS ORDERED: APIXABAN 2.5 MG TABLET PO SCH (11:00)
--- NOTE | 2021-07-13 11:19 | NUR ---
Firearms Report: Library Technician completed and submitted a [employer] firearms report for 5150 grave disability certifications. A copy of report has been placed in patient chart.
--- NOTE | 2021-07-13 11:21 | NUR ---
SASHA Initial Discharge Note: SASHA spoke with pt's daughter Josseline ([phone]) here at the facility. Josseline reported that the initial discharge plan from prior admission remains in place. Pt will be discharged to [facility] [address] [place] [address] [place] [address] upon discharge. Pt's son (TONI) ([phone]) and Josseline continue to request to not contact the facility without their consent until pt is ready for discharge. Pt will continue to work with the pt, family and MD to ensure a safe and proper discharge plan.
--- NOTE | 2021-07-13 12:53 | NUR ---
GPS: DAUGHTER CAME AND WAS ABOUT TO GIVE THE SINEMET TO PT. DAUGHTER WANTS TO HOLD ON THE MEDICATION FIRST UNTIL SHE SPEAKS WITH THE NEUROLOGIST. PER DAUGHTER, IT MIGHT HAVE A BAD SIDE EFFECTS THAT THE PT IS HAVING.
[2021-07-13] MEDS: CEFTRIAXONE 1 G in IV DEXTROSE 5% 50 ML IV SCH (15:13)
[2021-07-13 16:00] VITALS: BP 130/48
[2021-07-13] MEDS: RIVAROXABAN 10 MG TABLET PO SCH (18:00)
--- NOTE | 2021-07-13 18:17 | NUR ---
GPS: PT WAS GIVEN A BED BATH TODAY AND PT WAS AGITATED, SCREAMING. NEVER HAD A SHOWER OR BATH SINCE PT WAS AT [facility] AND TRANSFERRED HERE. PT REFUSED ORAL MEDS XARELTO AND SINEMET. EXPLAINED RISK AND BENEFITS TO PT. PT STILL WITH IV D5 NS 1/2 FOR HYDRATION, FLOWING AT 70ML/HR, PATENT. NO REDNESS, SWELLING ON IV SITE, DRY AND PAIN OR DISCOMFORT.
[2021-07-13 20:00] VITALS: BP 159/66
[2021-07-13] MEDS: CARBIDOPA/LEVODOPA CR 25-100MG TABLET.SA PO SCH (21:00)
[2021-07-14] MEDS: INSULIN REGULAR, HUMAN 300 UNIT/3 ML VIAL SQ SCH ×4 (07:30→21:00)
[2021-07-14] MEDS: BLOOD SUGAR DIAGNOSTIC 1 EACH STRIP VI SCH ×4 (07:30→21:00)
[2021-07-14 08:00] VITALS: BP 133/55
[2021-07-14] MEDS: CARBIDOPA/LEVODOPA 25-100MG TABLET PO SCH ×3 (09:00→17:00)
[2021-07-14] MEDS: DIVALPROEX 500 MG TABLET.DR PO SCH ×2 (12:54→20:38)
[2021-07-14] MEDS: GLUCERNA SHAKE 237 ML CAN PO SCH ×3 (12:55→17:00)
[2021-07-14] MEDS: RIVAROXABAN 10 MG TABLET PO SCH (12:56)
[2021-07-14] MEDS: CEFTRIAXONE 1 G in IV DEXTROSE 5% 50 ML IV SCH (12:56)
[2021-07-14 16:00] VITALS: BP 156/82
[2021-07-14] MEDS: IV D5 1/2 NS 1000 ML 1,000 ML IV SCH (20:04)
[2021-07-14] MEDS: QUETIAPINE FUMARATE 100 MG TABLET PO SCH (20:38)
[2021-07-14 21:13] VITALS: BP 158/98
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
[2021-07-15] MEDS ORDERED: Z GUARD REMEDY PASTE 57 GM TUBE TOP PRN (05:30)
[2021-07-15] MEDS: BLOOD SUGAR DIAGNOSTIC 1 EACH STRIP VI SCH ×4 (05:37→20:17)
--- NOTE | 2021-07-15 05:43 | NUR ---
Patient drank a carton of milk, ate a whole pudding and apple sauce the went to sleep. Total sleep hours is 2.30 at this point. Continuing to provide nancy care, turn and reposition the patient for comfort and to prevent any skin breakdown plus calmly reassure and reorient her as needed. Safety stratiges in place. No acute behavioral issues at this time.
[2021-07-15] MEDS: INSULIN REGULAR, HUMAN 300 UNIT/3 ML VIAL SQ SCH ×4 (07:30→20:17)
[2021-07-15] MEDS: QUETIAPINE FUMARATE 25 MG TABLET PO SCH (08:41)
[2021-07-15] MEDS: GLUCERNA SHAKE 237 ML CAN PO SCH ×3 (08:41→17:54)
[2021-07-15] MEDS: DIVALPROEX 500 MG TABLET.DR PO SCH ×2 (08:41→20:14)
[2021-07-15] MEDS: CARBIDOPA/LEVODOPA 25-100MG TABLET PO SCH (08:42)
[2021-07-15] MEDS: CEFTRIAXONE 1 G in IV DEXTROSE 5% 50 ML IV SCH (11:08)
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
[2021-07-15 16:00] VITALS: BP 114/69
[2021-07-15] MEDS: RIVAROXABAN 10 MG TABLET PO SCH ×2 (17:58→18:00)
[2021-07-15] MEDS: QUETIAPINE FUMARATE 100 MG TABLET PO SCH (20:14)
--- NOTE | 2021-07-16 06:25 | NUR ---
GPS NOTED: Patient slept 6.00 on and off during the night. This proposal writer discontinued the midline IV catheter. The tip intact. During the assessment of the patient, the IV site was noted as swollen from an infiltrated antibiotic from the previous shift. The primary MD discontinued all of the IV fluids and medications earlier in the night. Left arm elevated and patient denied pain. The patient continues to shout at staff and shouts when alone. The patient is very paranoid with delusions of persecution. Over and over the staff offers reassurance in a calm manner which has no impact on this patient. Basic care for her takes maximum effort by multiple staff members . The patient continues to refuses blood glucose monitoring , VS and PO medications .The patient is on a Riese and requires Zyprexa IM injections almost daily. The patient was turned and repositioned for comfort during the shift and oral fluids were provided. Safety stratiges in place.
[2021-07-16] MEDS: INSULIN REGULAR, HUMAN 300 UNIT/3 ML VIAL SQ SCH ×4 (07:12→21:00)
[2021-07-16] MEDS: BLOOD SUGAR DIAGNOSTIC 1 EACH STRIP VI SCH ×4 (07:14→21:00)
[2021-07-16 07:30] VITALS: BP 135/64
[2021-07-16] MEDS: DIVALPROEX 500 MG TABLET.DR PO SCH ×2 (08:25→21:05)
[2021-07-16] MEDS: QUETIAPINE FUMARATE 25 MG TABLET PO SCH (08:26)
[2021-07-16] MEDS: GLUCERNA SHAKE 237 ML CAN PO SCH ×3 (08:40→17:00)
[2021-07-16] MEDS: GLUCERNA SHAKE VANILLA 237 ML CAN PO SCH ×3 (09:30→17:00)
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
[2021-07-16 16:00] VITALS: BP 115/61
[2021-07-16 20:27] VITALS: BP 110/44
[2021-07-16] MEDS: QUETIAPINE FUMARATE 100 MG TABLET PO SCH (21:05)
[2021-07-16] MEDS: ACETAMINOPHEN 325 MG TABLET PO PRN (21:05)
--- NOTE | 2021-07-16 23:54 | NUR ---
Pt discharged to [place] around 2230 per RESTORATIVE ART EMBALMER Eduardo Garcia's order. Pt will be managed for UTI and covid. No IV access, no c/o pain, no s/s of distress noted upon d/c. Tylenol PRN given with routine HS meds for fever of 101.1 F. Son and daughter aware of the developments and agreed. Due medications given prior to transfer.
[2021-07-16] MEDS ORDERED: DIVA500T2 PO (23:55)
[2021-07-16] MEDS ORDERED: QUET50TA PO (23:56)
[2021-07-16] MEDS ORDERED: QUET100T PO (23:57)
[2021-07-17] MEDS ORDERED: DIVA500T2 PO (00:01)
[2021-07-17] MEDS ORDERED: QUET50TA PO (00:01)
[2021-07-17] MEDS ORDERED: QUET100T PO (00:02)
--- NOTE | 2021-07-17 00:11 | NUR ---
DISCHARGE NOTE Patient first observed on unit with a temperature, covid test administered with a positive result. physician notified. Eduardo Garcia NP ordered a transfer, patient transferred to medical surgical 3rd floor at 2245.
[2021-07-17] MEDS ORDERED: CARB1TAB39 PO (15:11)
== END 2021-07-17 00:22 | disposition short-term general hospital (02) | DRG 885 ==
LOC: GPS 21:11 → GPSOV3 07-16 22:30 → GPS 07-16 23:55
PROVIDERS: ADMIT Nurse Practitioner Psychiatric/Mental Health; ATTEND Nurse Practitioner Family
DX: F31.89 Other bipolar disorder (principal); E11.65 Type 2 diabetes mellitus with hyperglycemia; G92.8 Other toxic encephalopathy; N39.0 Urinary tract infection, site not specified; B96.20 Unspecified Escherichia coli [E. coli] as the cause of diseases classified elsewhere; E03.9 Hypothyroidism, unspecified; E78.5 Hyperlipidemia, unspecified; Z86.711 Personal history of pulmonary embolism; I25.10 Atherosclerotic heart disease of native coronary artery without angina pectoris; G20 Parkinson's disease; M81.0 Age-related osteoporosis without current pathological fracture; F03.90 Unspecified dementia, unspecified severity, without behavioral disturbance, psychotic disturbance, mood disturbance, and anxiety; F02.80 Dementia in other diseases classified elsewhere, unspecified severity, without behavioral disturbance, psychotic disturbance, mood disturbance, and anxiety; Z79.01 Long term (current) use of anticoagulants; F25.9 Schizoaffective disorder, unspecified; F29 Unspecified psychosis not due to a substance or known physiological condition; Z79.84 Long term (current) use of oral hypoglycemic drugs
CPT/HCPCS: 36415; 71045; 85025; 97161; J0696; J1650; J1815; J2060; J2358; J3490; J7060; J8499; Z7610

== ENCOUNTER 2021-07-16 22:40 | Inpatient (IN) | payer MEDICARE, OTHER ==
--- NOTE | 2021-07-16 22:30 | NUR ---
ADMITTED PATIENT FROM [facility] UNDER THE CARE OF SANGITA ENAMORADO, PATIENT IS COVIDI POSITIVE, ON DROPLET PRECAUTIONS, PATIENT HAS POSSIBLE UTI ACCORDING TO REPORT, WITH LAB ORDERS, AND URINE ORDER. PATIENT CONFUSED, HAS SEVERE PARANOIA, RESISTIVE TO CARE, YELLS AND SCREAMS, WITH ONE 1;1 SITTER FOR SAFETY. CONT TO MONITOR.
[2021-07-16] MEDS ORDERED: DIVA500T2 PO (23:55)
[2021-07-16] MEDS ORDERED: QUET50TA PO (23:56)
[2021-07-16] MEDS ORDERED: QUET100T PO (23:57)
[2021-07-17] MEDS ORDERED: DIVA500T2 PO (00:01)
[2021-07-17] MEDS ORDERED: QUET50TA PO (00:01)
[2021-07-17] MEDS ORDERED: QUET100T PO (00:02)
[2021-07-17 00:53] VITALS: BP 115/53
[2021-07-17 01:12] LABS: CREATININE 0.8 mg/dL (0.6-1.3); POTASSIUM 4.6 mmol/L (3.5-5.1)
[2021-07-17 01:13] LABS: *BILIRUBIN,URIN 1+ (NEGATIVE); *BLOOD, URINE 1+ (NEGATIVE); *COLOR,URINE AMBER (YELLOW); *KETONES,URINE 2+ (NEGATIVE); *UROBILINOGEN,URINE 0.2 E.U./dl (NORMAL); LEUKOCYTE ESTERASE ,URINE 2+ (NEGATIVE); NITRITE, URINE NEGATIVE (NEGATIVE); PH,URINE 5.5 (5.0-8.0); UGLUCOSE NEGATIVE (NEGATIVE)
--- NOTE | 2021-07-17 01:14 | NUR ---
PATIENT WAS FROM [facility] UNIT, AND ADMITTED AT [facility] FLOOR WITH DIAGNOSIS OF COVID, UNDER THE CARE OF SANGITA ENAMORADO, LAB, AND URINE WAS DONE, SPOKE TO [facility] TO NOTIFY PSYCH MD THAT PATIENT NEEDS PSYCH MEDICATIONS SINCE THIS A NEW ADMISSION.
[2021-07-17 01:15] LABS: *CLARITY,URINE HAZY (CLEAR)
[2021-07-17 01:17] LABS: HEMATOCRIT 38.1 % (31.2-41.9); MEAN CORPUSCULAR HEMOGLOBIN 30.7 uug (24.7-32.8); MEAN CORPUSCULAR VOLUME 92.1 fL (75.5-95.3); PLATELET COUNT (AUTO) 203 K/uL (179-408)
[2021-07-17 01:19] LABS: BACTERIA,URINE MANY /HPF (NONE SEEN); SQUAMOUS EPITHELIAL CELL,UR MODERATE /HPF (NONE SEEN); WBC,URINE TNTC /HPF (0-3)
[2021-07-17 01:21] LABS: YEAST,URINE MODERATE /HPF (NONE SEEN)
[2021-07-17] MEDS ORDERED: DEXTROSE 50% 50 ML DISP.SYRIN IV PRN (03:30)
[2021-07-17] MEDS ORDERED: INSULIN REGULAR, HUMAN 300 UNIT/3 ML VIAL SQ PRN (03:30)
--- NOTE | 2021-07-17 05:02 | NUR ---
PATIENT HAS AN ORDER FOR TELLEZ CATH, INSERT TELLEZ CATH TOLERATE WELL, RESISTIVE WITH CARE, CONT TO MONITOR.
[2021-07-17] MEDS: BLOOD SUGAR DIAGNOSTIC 1 EACH STRIP VI SCH ×2 (06:08→12:45)
[2021-07-17] MEDS ORDERED: IV 1/2NS 1000 ML 1,000 ML IV PRN (07:45)
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
[2021-07-17] MEDS ORDERED: CARBIDOPA/LEVODOPA 25-100MG TAB.RAPDIS PO SCH (09:00)
[2021-07-17] MEDS ORDERED: ENOXAPARIN SODIUM 40 MG/0.4 ML DISP.SYRIN SQ SCH (09:00)
[2021-07-17] MEDS ORDERED: GLUCERNA SHAKE 237 ML CAN PO SCH (09:00)
--- NOTE | 2021-07-17 09:29 | NUR ---
SW contacted both pts son and DPOA Buddy Holt ([phone]) and daughter Josseline ([phone]) who stated that pt will be returning to [facility] located at [address] [place] [address] ([phone]) upon discharge. DPOA requested for staff to not call [facility] or send any documents regarding pts discharge without consulting with DPOA first.
--- NOTE | 2021-07-17 09:30 | NUR ---
DR DARRIUS NUNEZ HERE AND SEEN PATIENT AND STATED WILL BREAK THE HOLD
--- NOTE | 2021-07-17 09:35 | NUR ---
SASHA Initial Discharge Note: SASHA contacted both pts son and DPOA Buddy Holt ([phone]) and daughter Josseline ([phone]) who stated that pt will be returning to [facility] located at [address] [place] [address] ([phone]) upon discharge. DPOA requested that for staff to not call [facility] or send any documents regarding pts discharge without consulting with DPOA first.
[2021-07-17] MEDS ORDERED: QUETIAPINE FUMARATE 25 MG TABLET PO SCH (10:00)
[2021-07-17] MEDS ORDERED: DIVALPROEX 500 MG TABLET.DR PO SCH (10:00)
--- NOTE | 2021-07-17 10:00 | NUR ---
PATIENTS DAUGHTER HERE AND ASSITED WITH GIVING PATIENT HER AM MEDS ORDERED.
--- NOTE | 2021-07-17 10:24 | NUR ---
ORDER WRITTEN FROM ERIN LECHUGA DOCUMENTATION TO D/C THE 5250 HOLD DOZER OPERATOR AWARE.
--- NOTE | 2021-07-17 11:00 | NUR ---
DR SANGITA KOTHARIW HERE AND INSERTED A MIDLINE PATIENT IS A HARD STICK WITH MULTIPLE ATTEMPTS SHE IS ALSO [id number] MAKING IT MORE DIFFICULT.
--- NOTE | 2021-07-17 11:15 | NUR ---
IVF STARTED ORDERED VIA MID LINE RIGHT UPPER ARM.
[2021-07-17] MEDS ORDERED: CARB1TAB39 PO (15:11)
--- NOTE | 2021-07-17 15:18 | NUR ---
PATIENTS DAUGHTER HERE AND STATED THAT PATIENTS PRIMARY DOCTOR ADVISED HER TO TAKE THE PATIENT HOME AND TAKE CARE OF HER AT HOME NOTIFIED HER THAT SINCE WE DO NOT HAVE AN ORDER TO DISCHARGE THE PATIENT SHE WILL NEED TO SIGN THE PATIENT AGAINST [facility] SO PATIENTS SON JEOVANY WHO HAS THE DPOA SIGNED THE AMA FORMJ
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
[2021-07-17] MEDS ORDERED: RIVAROXABAN 10 MG TABLET PO SCH (18:00)
[2021-07-17] MEDS ORDERED: CARBIDOPA/LEVODOPA CR 25-100MG TABLET.SA PO SCH (21:00)
[2021-07-17] MEDS ORDERED: CARBIDOPA/LEVODOPA 25-100MG TABLET PO SCH (21:00)
[2021-07-17] MEDS ORDERED: QUETIAPINE FUMARATE 100 MG TABLET PO SCH (21:00)
== END 2021-07-17 16:00 | disposition left against medical advice (07) | DRG 177 ==
LOC: MEDSURG3 22:40
PROVIDERS: ADMIT Nurse Practitioner Family; ATTEND Nurse Practitioner Family
PROC: 05H533Z Insertion of Infusion Device into Right Subclavian Vein, Percutaneous Approach (ICD-10-PCS; principal; 2021-07-17)
PROC: B546ZZA Ultrasonography of Right Subclavian Vein, Guidance (ICD-10-PCS; 2021-07-17)
DX: U07.1 COVID-19 (principal); G92.8 Other toxic encephalopathy; N39.0 Urinary tract infection, site not specified; F31.89 Other bipolar disorder; G20 Parkinson's disease; F02.80 Dementia in other diseases classified elsewhere, unspecified severity, without behavioral disturbance, psychotic disturbance, mood disturbance, and anxiety; B96.20 Unspecified Escherichia coli [E. coli] as the cause of diseases classified elsewhere; E03.9 Hypothyroidism, unspecified; E11.65 Type 2 diabetes mellitus with hyperglycemia; E78.5 Hyperlipidemia, unspecified; I48.91 Unspecified atrial fibrillation; Z79.899 Other long term (current) drug therapy; R62.7 Adult failure to thrive; Z86.711 Personal history of pulmonary embolism; Z79.01 Long term (current) use of anticoagulants; Z79.84 Long term (current) use of oral hypoglycemic drugs; Z73.6 Limitation of activities due to disability
CPT/HCPCS: 36415; 85025; 87040; 87077; 87086; G0378; J1815; J3490; J8499